=== PATIENT | female | born 1990 | race Caucasian/White ===

== ENCOUNTER 2023-12-29 09:10 | Emergency (ER) | payer OTHER ==
--- NOTE | 2023-12-29 09:25 | ERPHSYRPT ---
- History of Present Illness Time Seen by Provider: 12/29/23 09:25 Source: patient Exam Limitations: no limitations Physician History: This is a right-handed 33-year-old white female patient who is a patient of Dr. Mejía and began a new job approximately 3 weeks ago. It is a job requiring repetitive motion and primarily using her right hand wrist and shoulder. Soon after starting her job 3 weeks ago, she noticed intermittent achiness followed by numbness in this right upper extremity. In the last 2 months, patient states that she has had achiness in joints intermittently body wide. Since she is moving the right upper extremity more often, the symptoms as described above have been most frequently in this extremity. She denies chest pain. Patient states that she cannot miss work. She did not fall or have any significant traumatic injury to this right upper extremity. Patient has no known drug allergies and she takes no medications chronically. Occurred: other (Do a shorter 3 weeks ago) Quality: intermittent, aching, other (Numbness) Severity of Pain-Max: mild (To moderate) Severity of Pain-Current: mild (To moderate) Extremities Pain Location: shoulder: right, wrist: right Modifying Factors: Improves With: movement (Worsens), rest (Improves) Associated Symptoms: none Allergies/Adverse Reactions: No Known Drug Allergies Allergy (Verified 12/29/23 09:39) Travel Risk - International Travel Have you traveled outside of the country in past 3 weeks: No - Emerging Infectious Disease Are you exhibiting symptoms associated with any current EIDs: No - Review of Systems Constitutional: No Symptoms Eyes: No Symptoms Ears, Nose, & Throat: No Symptoms Respiratory: No Symptoms Cardiac: No Symptoms Abdominal/Gastrointestinal: No Symptoms Genitourinary Symptoms: No Symptoms Musculoskeletal: Arthralgias Skin: No Symptoms Neurological: No Symptoms Psychological: No Symptoms Endocrine: No Symptoms Hematologic/Lymphatic: No Symptoms Immunological/Allergic: No Symptoms All Other Systems: Reviewed and Negative - Past Medical History Neurological History: No Pertinent History Cardiac History: No Pertinent History Respiratory History: No Pertinent History Endocrine Medical History: No Pertinent History Musculoskeletal History: No Pertinent History Other Medical History: heart ablasion in 2013, - Nursing Vital Signs Nursing Vital Signs: Initial Vital Signs Temperature 97.1 F 12/29/23 09:33 Pulse Rate 72 12/29/23 09:33 Respiratory Rate 20 12/29/23 09:33 Blood Pressure 168/105 12/29/23 09:33 O2 Sat by Pulse Oximetry 99 12/29/23 09:33 Pain Scale Pain Intensity 7 - Physical Exam General Appearance: no apparent distress, alert, anxiety Eyes, Ears, Nose, Throat Exam: normal ENT inspection, moist mucous membranes Neck Exam: normal inspection, non-tender, supple, full range of motion Cardiovascular/Respiratory Exam: chest non-tender, no respiratory distress Abdominal Exam: non-tender Back Exam: normal inspection, normal range of motion, No CVA tenderness Shoulder Exam: normal inspection, no evidence of injury, normal ROM, soft tissue tenderness (At the level of the shoulder on the right side), No deformity Elbow/Forearm Exam: normal inspection, non-tender, no evidence of injury, normal ROM Wrist Exam: normal inspection, no evidence of injury, normal ROM, soft tissue tenderness (With repetition of movement), No deformity Hand Exam: normal inspection, non-tender, no evidence of injury, normal ROM Neuro/Tendon Exam: normal sensation, normal motor functions, normal tendon functions, responds to pain, no evidence tendon injury Mental Status Exam: alert, oriented x 3, cooperative Skin Exam: normal color, warm, dry SpO2 Interpretation: normal - Course Nursing assessment & vital signs reviewed: Yes Ordered Tests: Active Orders 24 hr Category Date Time Status Splint STAT Care 12/29/23 10:06 Active - Progress Progress: unchanged Progress Note: 12/29/23 10:12 Medical decision making and the assignment of low complexity to this patient's medical issue is based on review of the patient's past medical history, review patient's medication list, review the patient drug allergy list, history present illness and physical findings on examination. The workup in this patient does not require any radiographic or laboratory studies. The patient has not had any acute trauma to this area. There is no evidence of infection. There is no evidence of swelling. There is no vascular compromise present. Differential diagnosis includes carpal tunnel, right shoulder strain, arthritis, multiple sclerosis. This patient's workup needs to be performed as an outpatient. Patient agrees. Patient does not feel an x-ray is necessary. I agree with her. Counseled pt/family regarding: diagnosis, need for follow-up Medical Desision Making - Diagnostic Testing Diagnostic test were ordered, analyzed, and reviewed by me: No - Risk of complications The pt has a mod risk of morbidity or mortality based on: Need for prescription drug management - Departure Departure Disposition: Home Clinical Impression: Right shoulder strain Condition: Stable Critical Care Time: No Referrals: RAFA MEJÍA DO [Primary Care Provider] - Follow up/PCP as directed Additional Instructions: Take your medications as prescribed. Call your prescribing provider today, 12/29/2023, to make an appointment for follow-up to be seen in the next 5 to 7 days. Forms: Work/School Release Form Prescriptions: Prednisone 10 mg [Deltasone 10 mg] 10 mg PO TID #12 tablet Orphenadrine Citrate 100 mg [Norflex 100 MG Tablet] 100 mg PO BID #10 tab
[2023-12-29 09:39] VITALS: RESP 20; TEMP 97.1
[2023-12-29 10:43] VITALS: BP 121/79; PULSE 61; O2SAT 98
== END 2023-12-29 10:56 | disposition home or self-care (01) ==
LOC: ED 09:10
DX: S46.911A Strain of unspecified muscle, fascia and tendon at shoulder and upper arm level, right arm, initial encounter (principal)
CPT/HCPCS: 99282; L3908